=== PATIENT | female | born 1965 | race Caucasian/White ===

== ENCOUNTER → 2018-02-21 | Outpatient (CLI) | payer BC ==
--- NOTE | 2018-02-21 15:48 | Diagnostic Imaging Report ---
INDICATION: Cough. COMPARISON: None. FINDINGS: Two views of the chest are obtained. Heart size is normal. The pulmonary vessels appear unremarkable. There is no pneumothorax, mediastinal widening, or pleural fluid demonstrated. The lungs are clear. The osseous structures appear unremarkable. IMPRESSION: No acute abnormality is demonstrated. Dictated by: Dictated on workstation # [id number]
== END ==
LOC: RAD 15:13
PROVIDERS: ATTEND Nurse Practitioner Family
DX: R05 Cough (principal)
CPT/HCPCS: 71046

== ENCOUNTER 2019-05-11 18:11 | Outpatient (CLI) | payer BC ==
[2019-05-11 18:28] VITALS: BP 137/89
[2019-05-11] MEDS ORDERED: NS IV 1000 ML 1,000 ML IV ONE (18:45)
[2019-05-11 20:18] VITALS: BP 135/65
--- NOTE | 2019-05-11 21:20 | NUR ---
PATIENT RECEIVED 1000ML NS BOLUS ORDERED. IV D/C'D FROM RIGHT HAND AND PATIENT D/C'D AT THIS TIME.
== END 2019-05-11 21:20 | disposition home or self-care (01) ==
LOC: 4THo 18:11 → 4TH 18:11 → 4THo 21:20
PROVIDERS: ATTEND Nurse Practitioner Family
DX: E86.0 Dehydration (principal); R00.0 Tachycardia, unspecified
CPT/HCPCS: 93005

== ENCOUNTER → 2019-05-26 | Outpatient (CLI) | payer BC | LOC: CARD 12:55 | PROVIDERS: ATTEND Internal Medicine Interventional Cardiology | DX: R00.0 Tachycardia, unspecified (principal); R00.2 Palpitations; I08.1 Rheumatic disorders of both mitral and tricuspid valves | CPT/HCPCS: 93306 ==

== ENCOUNTER 2019-05-30 11:01 | Outpatient (RCR) | payer BC | END 2019-08-28 | disposition home or self-care (01) | LOC: CARD 11:01 | PROVIDERS: ATTEND Internal Medicine Interventional Cardiology | DX: R00.0 Tachycardia, unspecified (principal); R00.2 Palpitations ==

== ENCOUNTER → 2019-06-28 | Outpatient (CLI) | payer BC ==
--- NOTE | 2019-06-28 15:16 | Diagnostic Imaging Report ---
PROCEDURE: US Non-ob pelvis comp/trans. TECHNIQUE: Multiple realtime grayscale images were obtained of the pelvis in various projections endovaginally. Transabdominal imaging was also performed. INDICATION: Menorrhagia. FINDINGS: Uterus measures 8.8 x 5.7 x 5.2 cm. The endometrium is 7 mm in thickness. No myometrial mass is identified. Cervical nabothian cysts are present. Right ovary measures 2.3 x 1.7 x 1.2 cm. Left ovary was not visualized. There is blood flow to the right ovary. No adnexal mass or free fluid is seen. IMPRESSION: Nonvisualized left ovary. The study is otherwise unremarkable. Dictated by: Dictated on workstation # [id number]
== END ==
LOC: RAD 13:56
PROVIDERS: ATTEND Nurse Practitioner Family
DX: N92.0 Excessive and frequent menstruation with regular cycle (principal)
CPT/HCPCS: 76830; 76856

== ENCOUNTER → 2019-07-13 | Day surgery (SDC) | payer BC ==
[~2019-07-13] VITALS: Ht 167.6 cm; Wt 96.6 kg
[~2019-07-13] MED LIST: LIDOCAINE 1% INJ 20 ML 20 ML VIAL ONE
[2019-07-13 09:14] VITALS: BP 143/82
--- NOTE | 2019-07-13 13:17 | History & Physicial-Cardiolgy ---
HPI-Cardiology Cardiology Consultation: Date of Consultation 07/13/19 Date of Admission Attending Physician Rashawn Givens MD Admitting Physician Cadence Drew MD Consulting Physician Rashawn GIVENS MD HPI: Time Seen by a Provider: 08:30 Chief Complaint: paroxysmal atrial fibrillation paroxysmal atrial fibrillation long-term surveillance is recommended. Review of Systems-Cardiology Review of Systems Constitutional: As described under HPI; No As described under HPI, No no symptoms reported, No chills, No fever, No lightheadedness Eyes: No As described under HPI, No no symptoms reported, No blindness, No blurred vision, No contact lenses, No drainage, No decreased acuity, No foreign body sensation, No pain, No vision change Ears/Nose/Throat: No As described under HPI, No no symptoms reported, No chronic hearing loss, No ear discharge, No ear pain, No nasal drainage, No ulcerations Respiratory: No no symptoms reported; As described under HPI; No As described under HPI, No cough, No orthopnea, No shortness of breath, No SOB with excertion Cardiovascular: No no symptoms reported; As described under HPI; No As described under HPI, No chest pain, No edema, No irregular heart rate, No lightheadedness, No palpitations Gastrointestinal: No no symptoms reported, No As described under HPI, No abdomen distended, No abdominal pain, No blood streaked bowels, No constipation, No diarrhea, No nausea, No vomiting, No stool coloration changes Genitourinary: No As described under HPI, No burning, No dysuria, No discharge, No frequency, No flank pain, No hematuria, No urgency : Yes : No Skin: No rash, No skin related problems, No ulcerations Psychiatric/Neurological: No anxiety, No depression, No seizure, No focal weakness, No syncope Hematologic: No bleeding abnormalities HJZ-Neejzx-Ymxmex Hx Patient Social History Alcohol Use: Denies Use Recreational Drug Use: No Smoking Status: Never a Smoker Recent Foreign Travel: No Past Medical History PMH As described under Assessment. Allergies and Home Medications Allergies Uncoded Allergies: dovienallyson (Allergy, Unknown, 06/13/16) Patient Home Medication List Home Medication List Reviewed: Yes Physical Exam-Cardiology Physical Exam Vital Signs/I&O 07/13/19 09:14 Pulse 56 Resp 17 B/P (MAP) 143/82 (102) Pulse Ox 99 O2 Delivery Room Air Capillary Refill : Constitutional: appears stated age; No apparent distress; well-developed, well- nourished HEENT: PERRL; No normal ENT inspection, No TMs normal, No pharynx normal, No scleral icterus (R), No scleral icterus (L), No pale conjunctivae (R), No pale conjunctivae (L), No photophobia, No TM abnormal (R), No TM abnormal (L), No pharyngeal erythema, No tonsillar exudate, No other, No discharge, No EOMI; hearing is well preserved; No hard of hearing; oral hygience is good; No ulceration, No xanthelasmas are seen Neck: No non-tender, No full range of motion, No supple, No normal inspection, No carotid bruit, No limited range of motion, No lymphadenopathy (R), No lymphadenopathy (L), No tender lateral, No tender midline, No thyromegaly, No other; carotid pulses are 2 + bilaterally; No with good upstrokes Respiratory: chest is bilaterally symmetric, lungs clear to auscultation Cardiovascular: regular rate-rhythm, S1 and S2 Gastrointestinal: No tender, No soft, No round, No distended, No pulsatile mass, No organomegaly, No guarding, No rebound, No tenderness, No hernia, No mass, No audible bowel sounds, No abnormal bowel sounds, No abdominal bruits, No spleenomegaly, No other Rectal: deferred Extremities: No normal range of motion, No non-tender, No normal inspection, No pedal edema, No calf tenderness, No normal capillary refill, No pelvis stable, No calf tenderness, No inflammation, No pedal edema, No slow capillary refill, No swelling, No other, No abrasion, No clubbing, No cyanosis, No ecchymosis, No laceration, No no lower extremity edema bilateral, No significant edema, No tenderness, No wound Neurologic/Psychiatric: no motor/sensory deficits, alert, normal mood/affect, oriented x 3, power is 5/5 both on sides Skin: No normal color, No warm/dry, No cyanosis, No cool, No diaphoresis, No damp, No ecchymosis, No jaundice, No mottled, No pallor, No rash, No tattoos/piercings, No ulcerations, No rash on exposed areas, No ulcerations on exposed areas, No other A/P-Cardiology Assessment/Admission Diagnosis paroxysmal atrial fibrillation Admission Status: Observation Plan implantable loop recorder is recommended. Rashawn GIVENS MD Jul 13, 2019 13:17
--- NOTE | 2019-07-13 13:19 | Implantation of Loop Monitor ---
Implant of Loop Monitior PROCEDURE PHYSICIAN: Andrea Givens MD IMPLANTATION OF LOOP MONITOR REPORT DATE OF PROCEDURE: 07/13/19 ATTENDING PHYSICIAN: Dr. Neeraj Givens. PERFORMING PHYSICIAN: Dr. Neeraj Givens. INDICATION: Long-term surveillance of atrial fibrillation PREOP DIAGNOSIS: Long-term surveillance of atrial fibrillation POSTOP DIAGNOSIS: paroxysmal Atrial fibrillation, s/p implantation of loop recorder. PROCEDURE DETAILS: The patient is a 53 female with history of paroxysmal atrial fibrillation requiring long-term surveillance. Therefore implantable loop recorder was d iscussed and agreed with the patient. Informed consent was taken. All risks and complications were discussed at length. The patient was draped and prepped in the usual sterile fashion. Local anesthesia was lidocaine, which was given in the substernal area close to the 4th intercostal space. Loop monitor was implanted according to the protocol. Steri-Strips were placed at the end of the procedure. There were no complications and the patient tolerated the procedure well. ANESTHESIA: Local anesthesia with lidocaine. COMPLICATIONS: None CONTRAST/FLUOROSCOPY: None CONCLUSION: 1. Successful implantation of loop monitor for paroxysmal atrial fibrillation. 2. No complication and the patient tolerated the procedure well. Andrea Givens MD, [facility], CCDS Cardiac Electrophysiology Rashawn GIVENS MD Jul 13, 2019 13:19
== END | disposition home or self-care (01) ==
LOC: CATH 08:34
PROVIDERS: ATTEND Internal Medicine Interventional Cardiology
DX: I48.0 Paroxysmal atrial fibrillation (principal); Z88.5 Allergy status to narcotic agent
CPT/HCPCS: 33285

== ENCOUNTER → 2019-07-27 | Outpatient (CLI) | payer BC ==
[~2019-07-27] VITALS: Ht 167.6 cm; Wt 96.6 kg
[~2019-07-27] MED LIST changes: -LIDOCAINE 1% INJ 20 ML 20 ML VIAL ONE; +REGADENOSON 0.4 MG/5 ML SYR (LEXISCAN) IV ONE
[2019-07-27] MEDS: CATHETER FLUSH 10 ML SYR IV PRN ×2 (08:16→09:30)
[2019-07-27 09:28] VITALS: BP 147/84
--- NOTE | 2019-08-08 17:27 | Cardiology Stress Test Report ---
Stress Test Report Type of NM Stress Test: Test Type: LEXISCAN 0.4MG/5ML Date of Procedure/Referring: Date of Procedure: Jul 27, 2019 PCP Rashawn Givens MD Admitting Physician Cadence Drew MD Indications: Atrial fibrillation Baseline Heart Rate: 67 Baseline Blood Pressure: Blood Pressure Systolic: 147 Blood Pressure Diastolic: 84 Baseline EKG: Baseline EKG: sinus rhythm Summary & Conclusion: Summary: The patient was brought to the stress lab after informed consent was taken. Stress test was performed according to the Lexiscan protocol. 0.4 mg of IV Lexiscan was given. Low-grade exercise was performed. Baseline EKG showed sinus rhythm at 67 BPM. Initial blood pressure was 142/78 mmHg. Maximum heart rate was 77 bpm and blood pressure 136/75 mmHg. Patient did not have any chest pain, arrhythmias or ST segment changes during the stress test. 10.71 mCi of Myoview were given for rest imaging and 30.7 mCi of Myoview given for stress imaging. Transient ischemic dilatation score 0.92, EF 67 percent. Normal wall motion. Normal myocardial perfusion imaging during rest and stress. Conclusion: Pharmacological stress test was negative for ischemia. Normal LV function with no wall motion abnormalities. Normal myocardial perfusion imaging during rest and stress. Rashawn GIVENS MD Aug 08, 2019 17:27
== END ==
LOC: CARD 07:54
PROVIDERS: ATTEND Internal Medicine Interventional Cardiology
DX: I48.0 Paroxysmal atrial fibrillation (principal); I10 Essential (primary) hypertension
CPT/HCPCS: 78452; 93017

== ENCOUNTER 2019-08-14 13:59 | Outpatient (CLI) | payer BC | END 2019-08-14 15:00 | disposition home or self-care (01) | LOC: SLEEP 13:59 | PROVIDERS: ATTEND Internal Medicine Interventional Cardiology | DX: G47.33 Obstructive sleep apnea (adult) (pediatric) (principal); I10 Essential (primary) hypertension; I48.0 Paroxysmal atrial fibrillation ==

== ENCOUNTER 2020-01-31 12:14 | Outpatient (CLI) | payer BC ==
[~2020-01-31] VITALS: Ht 167 cm; Wt 110.9 kg
[2020-01-31] MEDS ORDERED: ALPR0.5T7 PO (12:37)
[2020-01-31] MEDS ORDERED: SERT50TA9 PO (12:37)
[2020-01-31] MEDS ORDERED: PREG100C PO (12:37)
[2020-01-31] MEDS ORDERED: DILT180C54 PO (12:37)
[2020-01-31] MEDS ORDERED: GLAT40SY SQ (12:37)
[2020-01-31] MEDS ORDERED: LEVO150T6 PO (12:37)
[2020-01-31] MEDS ORDERED: DABI150C5 PO (12:37)
[2020-01-31] MEDS ORDERED: CARB100C9 PO (12:37)
[2020-01-31] MEDS ORDERED: POLY17PO6 PO (12:41)
[2020-01-31 12:42] VITALS: BP 129/69
[2020-01-31 14:15] LABS: BASOPHILS % (AUTO) 1 % (0-10); EOSINOPHILS # (AUTO) 0.2 10^3/uL (0.0-0.3); EOSINOPHILS % (AUTO) 3 % (0-10); HEMATOCRIT 34 % (35-52); LYMPHOCYTES # (AUTO) 1.3 X 10^3 (1.0-4.0); LYMPHOCYTES % (AUTO) 20 % (12-44); MEAN CORPUSCULAR HEMOGLOBIN 27 PG (25-34); MEAN CORPUSCULAR HGB CONC 32 G/DL (32-36); MEAN CORPUSCULAR VOLUME 83 FL (80-99); MEAN PLATELET VOLUME 10.2 FL (7.4-10.4); MONOCYTES # (AUTO) 0.5 X 10^3 (0.0-1.0); MONOCYTES % (AUTO) 8 % (0-12); NEUTROPHILS # (AUTO) 4.5 X 10^3 (1.8-7.8); NEUTROPHILS % (AUTO) 68 % (42-75); PLATELET COUNT 231 10^3/uL (130-400); RED CELL DISTRIBUTION WIDTH 15.7 % (10.0-14.5); WHITE BLOOD COUNT 6.5 10^3/uL (4.3-11.0)
== END 2020-01-31 15:30 | disposition home or self-care (01) ==
LOC: PREOP 12:14
PROVIDERS: ATTEND Obstetrics & Gynecology
DX: Z01.812 Encounter for preprocedural laboratory examination (principal); N94.6 Dysmenorrhea, unspecified; N93.8 Other specified abnormal uterine and vaginal bleeding
CPT/HCPCS: 36415; 85025; 86850; 86900; 86901; 87081

== ENCOUNTER 2021-08-28 05:41 | Outpatient (CLI) | payer BC ==
[~2021-08-28] VITALS: Ht 165.1 cm; Wt 102.2 kg
[~2021-08-28 05:41] MED LIST changes: +ALPR0.5T7 PO; +CARB100C9 PO; +DABI150C5 PO; +DILT180C54 PO; +GLAT40SY SQ; +LEVO150T6 PO; +OXYC1TAB87 PO; +POLY17PO6 PO; +PREG100C PO; -REGADENOSON 0.4 MG/5 ML SYR (LEXISCAN) IV ONE; +SERT-413 PO
[2021-08-28] MEDS ORDERED: FLUT9.9S NS (09:11)
[2021-08-28] MEDS ORDERED: AMLO5TAB4 PO (09:11)
[2021-08-28] MEDS ORDERED: ALBU2.5V4 INH (09:11)
[2021-08-28] MEDS ORDERED: RT-ALBUINH IH (09:11)
== END 2021-08-28 10:10 | disposition home or self-care (01) ==
LOC: PREOP 05:41
PROVIDERS: ATTEND Orthopaedic Surgery
DX: Z01.818 Encounter for other preprocedural examination (principal)

== ENCOUNTER 2021-09-03 08:39 | Day surgery (SDC) | payer BC ==
[2021-09-03] VITALS (10 sets, daily range): BP systolic 100–145; BP diastolic 59–85
[~2021-09-03] VITALS: Ht 165.1 cm; Wt 102.2 kg
[~2021-09-03 08:39] MED LIST changes: +ALBU2.5V4 INH; +AMLO5TAB4 PO; +FLUT9.9S NS; +RT-ALBUINH IH; +oxyCODONE/APAP 5/325MG (PERCOCET 5) TABLET PO PRN
[2021-09-03] MEDS ORDERED: ceFAZolin INJECTION 1,000 MG in WATER (STERILE) FOR INJECTION 10 ML IV ONE (09:00)
--- NOTE | 2021-09-03 09:11 | Progress Note-Pre Operative ---
Pre-Operative Progress Note H&P Reviewed The H&P was reviewed, patient examined and no changes noted. Date Seen by Provider: Sep 03, 2021 Time Seen by Provider: 09:11 Date H&P Reviewed: Sep 03, 2021 Time H&P Reviewed: 09:11 Pre-Operative Diagnosis: right knee medial meniscus tear and chondromalacia ANDRAE BAZAN MD Sep 03, 2021 09:11
--- NOTE | 2021-09-03 09:13 | Progress Note-Post Operative ---
Post-Operative Progess Note Surgeon (s)/Corporate Webmaster (s) Surgeon ANDRAE BAZAN MD Corporate Webmaster: Siddharth Nj Pre-Operative Diagnosis right knee medial meniscus tear and chondromalacia Post-Operative Diagnosis right knee lateral meniscus tear and chondromalacia of the patella, trochlea, lateral tibial plateau and medial femoral condyle Procedure & Operative Findings Date of Procedure 09/03/21 Procedure Performed/Findings right knee arthroscopic partial lateral meniscectomy and chondroplasty of the patella, trochlea, lateral tibial plateau and medial femoral condyle Anesthesia Type GETA Estimated Blood Loss Estimated blood loss (mL): minimal Specimens/Packing Specimens Removed none Packing: none ANDRAE BAZAN MD Sep 03, 2021 09:13
[2021-09-03] MEDS ORDERED: BUPIVACAINE 0.25% 30 ML (SENSORCAINE) VIAL ONE (09:19)
[2021-09-03] MEDS ORDERED: morphine PF (DURAMORPH) 10 MG/10 ML AMP ONE (09:19)
[2021-09-03] MEDS ORDERED: MIDAZOLAM 2 MG/2 ML (VERSED) VIAL IV ONE (09:30)
[2021-09-03] MEDS ORDERED: FAMOTIDINE 20MG/2ML IV (PEPCID) IV ONE (09:30)
[2021-09-03] MEDS ORDERED: ONDANSETRON 4 MG/2 ML (SDV) Z0FRAN IV ONE (09:30)
[2021-09-03] MEDS ORDERED: LACTATED RINGERS 1,000 ML IV PRN (09:30)
[2021-09-03] MEDS ORDERED: LIDOCAINE PF 2% 5 ML (XYLOCAINE) VIAL ONE (09:31)
[2021-09-03] MEDS ORDERED: fentaNYL INJ 100 MCG/2 ML AMP ONE (09:31)
[2021-09-03] MEDS ORDERED: MIDAZOLAM 2 MG/2 ML (VERSED) VIAL ONE (09:31)
[2021-09-03] MEDS ORDERED: proPOfol 200 MG/20 ML (DIPRIVAN) VIAL IV ONE (09:31)
[2021-09-03] MEDS ORDERED: SEVOFLURANE (ULTANE) 15 ML INHAL SOLN ONE ×2 (09:31→10:40)
[2021-09-03] MEDS ORDERED: ONDANSETRON 4 MG/2 ML (SDV) Z0FRAN ONE (09:31)
[2021-09-03] MEDS ORDERED: TRM50T PO (10:08)
[2021-09-03] MEDS ORDERED: MEPERIDINE (DEMEROL) INJ 50 MG/ML IVP ONE (10:45)
[2021-09-03] MEDS ORDERED: ONDANSETRON 4 MG/2 ML (SDV) Z0FRAN IVP PRN (10:45)
[2021-09-03] MEDS ORDERED: fentaNYL INJ 100 MCG/2 ML AMP IVP ONE (10:45)
[2021-09-03] MEDS ORDERED: ACETAMINOPHEN 500 MG TAB (TYLENOL) PO ONE (12:00)
[2021-09-03] MEDS ORDERED: ACETAMINOPHEN 500 MG TAB (TYLENOL) ONE (12:08)
--- NOTE | 2021-09-03 13:51 | Physical Therapy Ortho Eval ---
PT Orthopedic Evaluation Type of Surgery Knee Scope Prior Level of Function Locomotion (Upon Admit): Independent Established Durable Medical Eq: None Subjective Subjective Patient rates pain currently at 5-6/10, reports she just got some Tylenol. Entry Into Home: Stairs With Railing Steps Into Home: 3 Steps Inside Home: 2 Steps Accessories: No Railing Motor Control Motor Control: Motor Control WNL ROM ROM: WFL, except focal deficit Strength Strength: WFL Transfer SCALE: Activities may be completed with or without assistive devices. 8-Exihlyqptu-axhdsif completes the activity by him/herself with no assistance from a helper. 5-Set-up or Clean-up Assistance-helper sets up or cleans up; patient completes activity. [place] assists only prior to or following the activity. 4-Supervision or Touching Assistance-helper provides verbal cues and/or touching/steadying and/or contact guard assistance as patient completes acti vity. Assistance may be provided throughout the activity or intermittently. 3-Partial/Moderate Assistance-helper does LESS THAN HALF the effort. [place] lifts, holds or supports trunk or limbs, but provides less than half the effort. 2-Substantial/Maximal Assistance-helper does MORE THAN HALF the effort. [place] lifts or holds trunk or limbs and provides more than half the effort. 1-Pbrafkcsg-vlpepy does ALL the effort. Patient does none of the effort to complete the activity. Or, the assistance of 2 or more helpers is required for the patient to complete the activity. If activity was not attempted, code reason: 7-Patient Refused. 9-Not Applicable-not attempted and the patient did not perform the activity before the current illness, exacerbation or injury. 10-Not Attempted due to Environmental Limitations-(lack of equipment, weather restraints, etc.). 88-Not Attempted due to Medical Conditions or Safety Concerns. Transfers (B, C, W/C) (QC): 5 Gait Gait Assistive Device: Crutches Left Lower Extremity: Left Weight Bearing Status LLE: Weight Bearing/Tolerated Distance (QC): 8=386-14 ft Distance: 50 Gait Level of Assist: 5 Summary/Comments Patient ascended/descended 3 steps with crutches and SBA. Patient required extensive verbal cues due to difficulty remembering gait process for stairs. Treatment Rendered Treatment: Therapeutic Exercises, Gait Train Exercise Instruction: Quad Sets, Straight Leg Raise, Heel Slides Assessment/Goals Goal Time Frame: 1 Visit Understands HEP: Yes Safe Ambulation: Yes Plan Treatment Plan: Discharge Treatment Duration: 1 visit Time Time In: 1310 Time Out: 1335 Total Billed Treatment Time: 25 Billed Treatment Time Visit, Yas Bradford JOHN A PT Sep 03, 2021 13:51
--- NOTE | 2021-09-03 17:17 | OPERATIVE REPORT ---
DATE OF SERVICE: 09/03/2021 PREOPERATIVE DIAGNOSES: 1. Right knee lateral meniscus tear. 2. Right knee chondromalacia of the patella. POSTOPERATIVE DIAGNOSES: 1. Right knee lateral meniscus tear. 2. Right knee chondromalacia of the patella. 3. Right knee chondromalacia of the trochlea. 4. Right knee chondromalacia of the lateral tibial plateau. 5. Right knee chondromalacia of the medial femoral condyle. PROCEDURES PERFORMED: 1. Right knee arthroscopic partial lateral meniscectomy. 2. Right knee arthroscopic chondroplasty of the patella. 3. Right knee arthroscopic chondroplasty of the trochlea. 4. Right knee arthroscopic chondroplasty of the lateral tibial plateau. 5. Right knee arthroscopic chondroplasty of the medial femoral condyle. SURGEON: Cristiano Bazan MD. SOAP DRIER OPERATOR: Siddharth Nj, who assisted throughout the procedure and closed the incisions. ANESTHESIA: General endotracheal by Siddharth Colin CRNA. TOURNIQUET TIME: Not applicable. ESTIMATED BLOOD LOSS: Minimal. DRAINS: None. COMPLICATIONS: None. POSTOPERATIVE PLAN: Routine arthroscopy protocol. The patient was transferred to the recovery room awake and stable condition. STATEMENT OF MEDICAL NECESSITY: The patient is a 55-year-old female with complaints of a right lateral knee pain, catching, locking and swelling. She was tender along the lateral joint line. She had pain laterally with Simona's. In addition, she had patellofemoral crepitus and pain with patellar loading. Due to functional impairment and failure to improve with conservative measures, the patient elected to proceed with surgical intervention. Examination under anesthesia revealed range of motion 0/0/135 with negative Kelli, negative anterior and posterior drawer. No varus or valgus laxity, negative pivot shift. ARTHROSCOPIC FINDINGS: The patella demonstrated grade II chondral flap superiorly in a 10 x 10 area. The trochlea demonstrated grade III chondral flap centrally in a 10 x 15 area. The medial and lateral gutters were clear. The lateral compartment demonstrated a complex tear of the posterior horn and body of the lateral meniscus involving approximately 1/3 of the posterior horn and body. In addition, there were grade II chondral flaps in a 15 x 15 area over the central portion of the lateral tibial plateau. The medial compartment demonstrated a chondral flap near the intercondylar notch and the femoral condyle in an 8 x 8 area. PROCEDURE IN DETAIL: After risks and benefits of the procedure were discussed and questions were answered, informed consent was signed and placed on the chart. The operative site was confirmed in the preoperative holding area initialed by the surgeon. The patient was then transferred to the operating room and after adequate levels of general endotracheal anesthetic were obtained, a timeout was called, confirming the operative site and examination under anesthesia was performed with the above findings noted. The right lower extremity was prepped and draped in the usual sterile fashion. The knee joint was injected with 60 mL of fluid and a standard inferolateral portal was placed for the arthroscope under direct visualization, inferior medial portal was created in the menisci and cruciates carefully probed with the above findings noted. The unstable chondral flaps on the patella and trochlea were debrided with the shaver back to a stable edge. Scope was redirected into the medial compartment and unstable chondral flap on the medial tibial plateau was debrided with a shaver back to a stable edge. Scope was then redirected into the lateral compartment. The unstable chondral flaps in the lateral tibial plateau were debrided with a shaver back to a stable edge and the posterior horn and body of the lateral meniscus were debrided with a biter and shaver back to a stable edge. This was carefully probed with no further tearing or instability noted. The knee was copiously irrigated. The port sites were closed with 4-0 nylon in a simple interrupted fashion. Knee was injected with Duramorph. The portal sites were infiltrated with plain Marcaine. A soft dressing was applied. The patient was transferred to the recovery room awake and in stable condition. Job ID: [id number] DocumentID: [id number] Dictated Date: 09/03/2021 10:43:32 Information Systems Manager Date: 09/03/2021 17:16:07 Dictated By: CRISTIANO BAZAN MD
--- NOTE | 2021-09-04 06:16 | HISTORY AND PHYSICAL ---
DATE OF SERVICE: ADMISSION HISTORY AND PHYSICAL This will be for outpatient surgery on 09/03/2021 for right knee arthroscopy. HISTORY OF PRESENT ILLNESS: The patient is a 55-year-old female with progressively worsening right knee pain. She reports a several year history of pain medially and laterally in her knee. She reports catching and locking in her knee. She reports functional impairment because of the knee. She has tried home exercise program as well as rest and anti-inflammatories without relief. She reports that she ambulates with a walker at times due to the pain. She does have a history of some back problems, but denies paresthesias. She reports the pain was localized to her knee. Due to functional impairment, the patient elected to proceed with surgical intervention. REVIEW OF SYSTEMS: No chest pain, no shortness of breath, no dysuria. PAST MEDICAL HISTORY: Anxiety, Graves' disease, rectocele, multiple sclerosis, atrial fibrillation, uterine cancer, allergic rhinitis, depression, tachycardia, trigeminal neuralgia, hypothyroidism, sleep apnea. PAST SURGICAL HISTORY: Tonsillectomy, thyroid ablation, hysterectomy. SOCIAL HISTORY: The patient is a teacher. She denies alcohol and tobacco use. FAMILY HISTORY: Significant for seizure disorder. PRIMARY CARE PROVIDER: Dr. Drew. MEDICATIONS: Zoloft, Flonase, albuterol, ProAir, Norvasc, Synthroid, Lyrica, glatiramer, carbamazepine, alprazolam, Pradaxa, Cardizem. ALLERGIES: HYDROCODONE, CODEINE AND CLEOCIN. RADIOGRAPHS: Reveal no significant degenerative changes. PHYSICAL EXAMINATION: GENERAL: The patient is well-developed, well-nourished, in no acute distress. HEENT: Normocephalic, atraumatic. Pupils are equal, round and reactive to light. Oropharynx is clear. NECK: Supple with no lymphadenopathy. LUNGS: Clear to auscultation bilaterally. HEART: Regular rate and rhythm. ABDOMEN: Soft, nontender. EXTREMITIES: The right knee demonstrates moderate effusion. She is tender along her medial joint line. She has an audible click with Simona's medially. She is also tender along the lateral joint line, has pain laterally with Simona's. No varus or valgus laxity. Negative anterior and posterior drawer. Range of motion is 0/0/20, but painful beyond 90 degrees posteriorly. She has negative straight leg raise. No pain with internal or external rotation of the hip. IMPRESSION: Right knee chondromalacia with medial and lateral meniscus tears. PLAN: Right knee arthroscopy, partial medial and lateral meniscectomies. Risks, benefits, options, ramifications and recovery have been discussed at length with the patient. She understands and wishes to proceed. Job ID: [id number] DocumentID: [id number] Dictated Date: 08/28/2021 08:50:00 Turf Farm Worker Date: 08/28/2021 09:11:16 Dictated By: ANDRAE BAZAN MD
== END 2021-09-03 13:45 | disposition home or self-care (01) ==
LOC: SDC 08:39
PROVIDERS: ATTEND Orthopaedic Surgery
DX: S83.271A Complex tear of lateral meniscus, current injury, right knee, initial encounter (principal); M94.261 Chondromalacia, right knee; I10 Essential (primary) hypertension; I48.91 Unspecified atrial fibrillation; G47.33 Obstructive sleep apnea (adult) (pediatric); K21.9 Gastro-esophageal reflux disease without esophagitis; E05.00 Thyrotoxicosis with diffuse goiter without thyrotoxic crisis or storm; E03.9 Hypothyroidism, unspecified; F41.9 Anxiety disorder, unspecified; F32.9 Major depressive disorder, single episode, unspecified; Z90.89 Acquired absence of other organs; Z99.89 Dependence on other enabling machines and devices; Z79.890 Hormone replacement therapy; Z79.899 Other long term (current) drug therapy; Z85.41 Personal history of malignant neoplasm of cervix uteri
CPT/HCPCS: 87081